=== PATIENT | male | born 1995 | race Caucasian/White ===

== ENCOUNTER 2023-09-08 09:20 | Emergency (ER) | payer OTHER ==
[~2023-09-08] VITALS: Ht 172.7 cm; Wt 72.4 kg
[2023-09-08] MEDS ORDERED: FLUO10CA18 PO (09:26)
[2023-09-08] MEDS ORDERED: BACI500O8 TOP (10:41)
[2023-09-08 11:07] VITALS: BP 120/69; TEMP 98; O2SAT 99
== END 2023-09-08 11:09 | disposition home or self-care (01) ==
LOC: M ED 09:20
DX: S61.214A Laceration without foreign body of right ring finger without damage to nail, initial encounter (principal); W26.0XXA Contact with knife, initial encounter; Y92.009 Unspecified place in unspecified non-institutional (private) residence as the place of occurrence of the external cause; Y93.9 Activity, unspecified; Y99.9 Unspecified external cause status